=== PATIENT | male | born 1960 | race Caucasian/White ===

== ENCOUNTER 2025-08-02 16:29 | Emergency (ER) | payer BC | END 2025-08-02 19:50 | disposition home or self-care (01) | LOC: CSHERS 16:29 | DX: S82.852A Displaced trimalleolar fracture of left lower leg, initial encounter for closed fracture (principal); I10 Essential (primary) hypertension; I48.91 Unspecified atrial fibrillation; X50.1XXA Overexertion from prolonged static or awkward postures, initial encounter | CPT/HCPCS: 27818; 96374; 96375; 96376 ==